=== PATIENT | male | born 1945 | race Caucasian/White ===

== ENCOUNTER → 2020-09-03 14:33 | Outpatient (CLI) | payer OTHER, SELFPAY ==
[2020-09-03] MEDS: COVID-19 VACC, Ad26(JANSSEN)/PF 0.5 ML IM (14:47)
== END ==
PROVIDERS: Visit Provider Internal Medicine
DX: Z23 Encounter for immunization (principal)
CPT/HCPCS: 0031A; 91303

== ENCOUNTER → 2021-09-11 11:16 | Outpatient (CLI) | payer OTHER, SELFPAY ==
--- NOTE | 2021-09-11 | DI.RAD.S_ITS ---
PROCEDURE: XR KNEE RT 3V INDICATIONS: RIGHT KNEE PAIN TECHNIQUE: 3 views of the knee were acquired. COMPARISON: [facility], , XR KNEE 2V RIGHT, 10/25/2003, 13:29. FINDINGS: Bones: No acute fracture or dislocation. There are tricompartmental degenerative changes of the knee which are relatively mild. No significant joint space narrowing. The right tibial tuberosity is ossified with a chronic lucency unchanged compared to a remote x-ray in 2004. Soft tissues: No joint effusion. No suspicious soft tissue calcifications. IMPRESSION: Mild degenerative changes. No acute abnormality. Dictated by: Sachin Dewey M.D. on 09/11/2021 at 16:01 Approved by: Sachin Dewey M.D. on 09/11/2021 at 16:17
== END ==
PROVIDERS: PCP Family Medicine; Referring Provider Family Medicine; Visit Provider Family Medicine
DX: M25.561 Pain in right knee (principal)
CPT/HCPCS: 73562